=== PATIENT | female | born 1995 | race Caucasian/White ===

== ENCOUNTER 2017-09-15 21:33 | Emergency (ER) | payer OTHER ==
[~2017-09-15 21:33] MED LIST: LEXA10TA PO; Z.0.NO CURRENT MEDS
[2017-09-15 21:35] VITALS: BP 119/76; PULSE 84; RESP 16; TEMP 99; O2SAT 100
--- NOTE | 2017-09-15 22:00 | PD ---
HPI Chief Complaint: Alcohol/Drug Intoxication Time Seen by Provider: 21:40 Travel History International Travel<30 days: No Contact w/Intl Traveler<30days: No Traveled to known affect area: No History of Present Illness HPI 22-year-old white female presents to emergency department accompanied by her mother. 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 She would like to get detox. She last used Xanax last week. The patient snorted heroin yesterday. The patient denies any toxic ingestions. No suicidal homicidal ideation. Patient does report intermittent symptoms of withdrawal. History Past Medical Histgory Narrative Medical Hepatitis C, substance abuse Tetanus Vaccination: < 5 Years ?: Not LMP: CURRENTLY Hx Cancer: No Past Surgical History Surgical History: No Previous Surgery Social History Alcohol Use: Yes Tobacco Use: Yes (10/10 ppd) Allergies-Medications (Allergen,Severity, Reaction): Coded Allergies: penicillin G (Unverified Allergy, Severe, 05/22/17) Reported Meds & Prescriptions Reported Meds & Active Scripts Active No Active Prescriptions or Reported Medications Review of Systems General / Constitutional: No: Fever Eyes: No: Visual changes HENT: No: Headaches Cardiovascular: No: Chest Pain or Discomfort Respiratory: No: Shortness of Breath Gastrointestinal: Positive: Nausea, No: Abdominal Pain Genitourinary: No: Dysuria Musculoskeletal: No: Pain Skin: No Rash Neurologic: No: Weakness Psychiatric: No: Depression Endocrine: No: Polydipsia Hematologic/Lymphatic: No: Easy Bruising Physical Exam Narrative GENERAL: Well-developed, well-nourished in no acute distress. Nontoxic appearing. HEAD: Normocephalic, atraumatic. EYES: Pupils equal round and reactive. Extraocular motions intact. No scleral icterus. No injection or drainage. ENT: TMs clear without erythema. The external auditory canals clear. Nose: clear . Posterior pharynx is pink and moist. No tonsillar edema or exudate. Uvula midline. Airway patent. NECK: Trachea midline.Supple, nontender, moves head freely. No central bony tenderness or spasm. CARDIOVASCULAR: Regular rate and rhythm without murmurs, gallops, or rubs. RESPIRATORY: Clear to auscultation. Breath sounds equal bilaterally. No wheezes , rales, or rhonchi. GASTROINTESTINAL: Abdomen soft, non-tender, nondistended. No hepato-splenomegaly , or palpable masses. No guarding. EXTREMITIES: No clubbing, cyanosis, or edema. No joint tenderness, effusion, or edema noted. No evidence of track burrell. BACK: Nontender without deformity or crepitance. No flank tenderness. Data Data Last Documented VS Vital Signs Date Time Temp Pulse Resp B/P (MAP) Pulse Ox O2 Delivery O2 Flow Rate FiO2 09/15/17 21:35 99.0 84 16 119/76 (90) 100 Room Air MDM Medical Screen Exam Complete: Yes Emergency Medical Condition: No Differential Diagnosis Differential diagnosis: IV substance abuse, prescription drug abuse, depression , anxiety Narrative Course A medical screening exam was performed: At the time of evaluation the presenting medical condition was determined not to be of an emergent nature. The patient was given the option of receiving additional care, but declined. Patient was given options for additional community resources from which to obtain care. The Patient Has Been advised to seek medical attention for their presenting complaint. The patient has been advised to return to the ER at any time if an emergent condition develops. [facility] has a female detox bed available for this patient. Primary Impression: Encounter for medical screening examination Scripts No Active Prescriptions or Reported Meds Condition: Enrique Mo Sep 15, 2017 22:00
== END 2017-09-15 21:55 | disposition left against medical advice (07) ==
LOC: NEPD 21:33
DX: F11.20 Opioid dependence, uncomplicated (principal)
CPT/HCPCS: 99281; 99282